=== PATIENT | male | born 1965 ===

== ENCOUNTER 2025-03-07 00:42 | Inpatient (IN) | payer SELFPAY ==
--- NOTE | 2025-03-07 | ECG_ITS ---
Test Reason : chest pain Blood Pressure : */* mmHG Vent. Rate : 62 BPM Atrial Rate : 62 BPM P-R Int : 164 ms QRS Dur : 102 ms QT Int : 382 ms P-R-T Axes : 68 61 8 degrees QTcB Int : 387 ms Normal sinus rhythm Normal ECG No previous ECGs available Referred By: Yao Del Cid Electronically Signed By: OMI HAMPTON MD
--- NOTE | ~2025-03-07 | CT_ITS ---
CLINICAL HISTORY: chest pain CT chest without contrast Comparison: None provided Findings: Heart size is normal. There is no pericardial effusion. Thoracic aorta is normal in diameter. There is no hematoma. There are no enlarged lymph nodes. The lungs are clear. Trachea and central bronchi are widely patent. There is a mild chronic appearing L1 compression fracture. There is no suspicious lytic or sclerotic lesion. Limited images of the upper abdomen demonstrate no acute findings. There is a small left renal cyst. IMPRESSION: No acute abnormality in the chest. This document has been electronically signed by: Car Boyd MD on 03/08/2025 01:16:58
--- NOTE | ~2025-03-07 | XR_ITS ---
CLINICAL HISTORY: chest pain, low grade temp 1 view chest x-ray. Comparison: CT/SR - CT CHEST WO IV CON - 03/08/25 00:14 EDT Findings: The lungs are adequately expanded. No focal consolidation. No effusion or pneumothorax. Cardiac and mediastinal contours are within normal limits. No acute osseous abnormality Impression: No acute process. This document has been electronically signed by: Deandre Bloom MD on 03/09/2025 12:21:11
[2025-03-07 02:07] VITALS: BP 144/88; PULSE 70; RESP 16; TEMP 36.8; O2SAT 99; BMI 24.5
--- NOTE | 2025-03-07 05:01 | PC.ADMIT ---
Inder Fernandez, 59 years old male with PMH of schizophrenia, who presented to the ED at [facility] from [facility] for medical clearance and making a statement to harm others. The pt reported to the police that while we're at it, you might as well call the psych ortega because am not there yet but starting to think about hurting someone . Patient arrived on the unit at 0110 this morning, with admitting diagnosis for adjustment disorder with anxious mood. pt is alert and oriented x4, extremely guarded, unkempt, disheveled but cooperative with questioning. pt. with pressured speech at times, flight of ideas and reports I am just not safe around the [place] Police. Upon arrival, pt. reported I just want to bring this right upfront to you, I don't take any meds, I don't take anything for my head, I am fine. I only take Toradol for hip pain . pt was calm and pleasant, engages easily but unable to complete admission process because he wanted to go to bed, stated its been a long day, I just want to go to bed . pt denied all psych symptoms. pt. denied SI/HI/AVH. pt. contracted for safety, ambulates independently but have right hip pain that bothers him and observed limbing when he walks. He agreed to take shower and use some warm water for the hip discomfort with good effect as per pt. VSS unremarkable. pt has no visible skin issues noticed. pending unit orientation due to tiredness, and pt is being observed on 15mins check. Belongings inventoried/secured. Hopitalist consulted.
--- NOTE | 2025-03-07 07:12 | PHA.MEDREC ---
Pharmacy Consult ? Medication Reconciliation Pharmacy has completed the medication reconciliation. Reviewed med rec done by nursing, no recent claims. Patient told nurse he takes Toradol as needed but it has never been filled.
[2025-03-07 07:39] VITALS: BP 130/66; PULSE 67; RESP 14; TEMP 36.6; O2SAT 97
[2025-03-07 08:43] LABS: Estimated Average Glucose 108 mg/dL; Hemoglobin A1C 134.5467 umol/L; Hemoglobin A1c % 5.4 % (<6.0); Total Hemoglobin (HGBA1C) 3753.1956 umol/L
[2025-03-07 08:49] LABS: Cholesterol 180 mg/dL (<200); HDL Cholesterol 50 mg/dL (>40); LDL Cholesterol Calculated 84 mg/dL (<100); Magnesium 2.2 mg/dL (1.6-2.6); Triglycerides 232 mg/dL (<150)
[2025-03-07 09:07] LABS: Free T4 (Free Thyroxine) 1.09 ng/dL (0.71-1.85); Thyroid Stimulating Hormone 2.71 uIU/mL (0.32-4.0)
[2025-03-07 09:19] LABS: Folate 4.7 ng/mL (> or = 4.0); Vitamin B12 265 pg/mL (200-900)
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
--- NOTE | 2025-03-07 10:50 | P.CONHOSP_ITS ---
History of Present Illness Data of Consult Service Date: 03/07/25 Primary Care Provider: Unknown Physician HPI Reason for consult: Medical H&P Patient is a 59-year-old male admitted from analgesics after he was taken to the ED by [facility] police Department after making a statement that he was going to harm others. He denies any past medical history, denies any past surgical history, his workup was essentially negative. He had a negative CT head and neck, negative CT of his chest, and negative CT of his abdomen and pelvis. BMP and CBC were both within normal limits. He endorses right hip pain that has b een an ongoing issue for him. He denies any interventions, has been told he needs a hip replacement in the past and has taken Toradol on occasion for flare. He walks with a antalgic gait. He does not wish any thing done for his hip pain at this time. Otherwise denies any medical concerns. Review of Systems Review of Systems: Denies any shortness of breath, chest pain, dizziness, lightheadedness, abdominal pain or discomfort, nausea vomiting or diarrhea PMFSH Social History Patient Tobacco Use Status: Current everyday Tobacco user Tobacco use type: Cigarette Currently Displaying Signs/Symptoms of Drug Intoxication Withdrawal: No Advance Directives: No Do you have thoughts of harming others: None Do you have a plan to hurt others: No Plan Recently lost weight without trying: Yes How much weight loss: 14-23 pounds Eating poorly because of decreased appetite: No Nutrition screen score: 4 Nutrition Risks: No Nutritional Risk Meds Allergies Allergy/AdvReac Type Severity Reaction Status Date / Time No Known Allergies Allergy Verified 03/06/25 21:31 Active Medications: Current Medications Acetaminophen (Acetaminophen 325 Mg Tablet) 650 mg PO Q6H PRN PRN Reason: Headache/Pain, Scale 1-10 Al Hydroxide/Mg Hydroxide (Magnesium Hydrox/Alum Hydrox 30 Ml Oral.Susp) 30 ml PO Q6H PRN PRN Reason: Heartburn/Nausea Hydroxyzine HCl (Hydroxyzine Hcl 25 Mg Tablet) 25 mg PO Q6H PRN PRN Reason: mild anxiety Magnesium Hydroxide (Milk Of Magnesia 30 Ml Oral.Susp) 30 ml PO DAILY PRN PRN Reason: Constipation Nicotine Polacrilex (Nicotine Polacrilex 2 Mg Gum) 4 mg BUCCAL Q2H PRN PRN Reason: Nicotine Cravings Trazodone HCl (Trazodone Hcl 50 Mg Tablet) 50 mg PO BEDTIME MRX1 PRN PRN Reason: Insomnia Physical Exam Vital Signs and Narrative: Vital Signs: Last Vital Signs Temp 97.8 F 03/07/25 07:39 Pulse 67 03/07/25 07:39 Resp 14 03/07/25 07:39 BP 130/66 03/07/25 07:39 Pulse Ox 97 03/07/25 07:39 O2 Del Method Room Air 03/07/25 07:39 BMI result Body Mass Index 24.5 Alert and oriented X3, rapid speech Neuro: CN II-X11 intact, no deficits, visual acuity intact EYES: PERRLA, EOM intact ENT: hearing intact, uvula midline, lips moist Cardiac: S1 S2 RRR, no edema in Lower ext Pulmonary: Lungs clear to auscultation, No increased WOB. Abdominal: BS active in all 4 quadrants, no guarding, tenderness, rebounding MSK: Strength 5/5 upper and lower extremities : Deferred Extremities: no edema in lower extremities, Moves all extremities. Psych: mood stable, judgment and insight good Skin: Warm and dry, Intact Results Labs Labs: Laboratory Results - last 24 hr 03/07/25 08:02 Estimat Average Glucose 108 Hemoglobin A1c % 5.4 Magnesium 2.2 Triglycerides 232 H Cholesterol 180 LDL Cholesterol, Calc 84 HDL Cholesterol 50 Vitamin B12 265 Folate 4.7 TSH 2.71 Free T4 1.09 Assessment and Plan (1) Adjustment disorder with anxious mood: Status: Acute Plan Adjustment disorder with anxious mood Treatment per psychiatric team Right hip pain Chronic in nature Imaging did not reveal any abnormalities. Previously has taken Toradol in the past Does not wish any interventions or pain management options Thank you for allowing me to participate in the care of this patient. Signing off at this time. Please reconsult of any acute complaints or issues arise
--- NOTE | 2025-03-07 14:17 | PC.NURSE ---
This narrative writer attempted to complete a med rec and was unable to. Pt provided incorrect pharmacy information. Provider aware.
[2025-03-07 20:00] VITALS: BP 161/80; PULSE 70; RESP 16; TEMP 36.9; O2SAT 98
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
[2025-03-08 00:58] LABS: Troponin-I High Sensitivity 8.4 ng/L (<3.5-35.0)
--- NOTE | 2025-03-08 07:25 | P.PNPSI_ITS ---
Subjective Subjective Date of Service: 03/08/25 Reason For Visit: Adj disorder w/anxious mood Interim History: met with patient. Discussed with Nursing. Chest pain last night. Negative workup. Slept for 4 hours. Appetite okay. Very eager for discharge and minimal insight. With tag writer very clear he wants discharge. Three-day notice expires on 03/12/2025. Reports he is here because of secondhand information and he should have kept his mouth shut in his words after going to the [place] police to file a restraining order against the state of [place] for what patient describes as Bogus trespass orders. He is quite difficult to follow and thought form for example spoke about 3 day notice, then renting a lotfrom his boss who has a large belly, then money to buy things, then winter, then selling rocks for 350 dollars, then people becoming jealous because he was friends with a female neighbor. He is concerned however about a potential court hearing coming up next week and would like social Work to connect with court so he does not get in trouble for not attending Medication Compliance: No Side effects from medications: No Attending Groups: Intermittent Review of Systems Acute medical concerns: No Review of Systems Review of Systems unremarkable Mental Status Exam Mental Status Exam Narrative: Pt is alert and oriented; behavior is hypomanic; patient is not in distress; dressed in casual attire with unkempt hair but adequate hygiene; mood is described as irritable and affect congruent, constricted; eye contact avoidant; Speech is moderately pressured; normal prosody; no psychomotor agitation/retardation present; thought process is circumstantial; Thought content is on being wrong fully admitted; paranoid ideations present; denies any SI/HI. Denies AVH; tag writer did not observe internal preoccupation. Patients insight and judgment impair Diagnostics Vital Signs (24Hr): Vital Signs - 24 hr 03/07/25 07:39 03/07/25 20:00 Temperature 97.8 F 98.4 F Pulse Rate 67 70 Respiratory Rate 14 16 Blood Pressure 130/66 161/80 H Pulse Oximetry 97 98 Oxygen Delivery Method Room Air Room Air BMI result Body Mass Index 24.5 Labs Labs: Laboratory Results - last 48 hr 03/07/25 03/08/25 08:02 00:25 Estimat Average Glucose 108 Hemoglobin A1c % 5.4 Magnesium 2.2 Troponin I High Sens 8.4 Triglycerides 232 H Cholesterol 180 LDL Cholesterol, Calc 84 HDL Cholesterol 50 Vitamin B12 265 Folate 4.7 TSH 2.71 Free T4 1.09 Medications Medications Current Medications Acetaminophen (Acetaminophen 325 Mg Tablet) 650 mg PO Q6H PRN PRN Reason: Headache/Pain, Scale 1-10 Al Hydroxide/Mg Hydroxide (Magnesium Hydrox/Alum Hydrox 30 Ml Oral.Susp) 30 ml PO Q6H PRN PRN Reason: Heartburn/Nausea Hydroxyzine HCl (Hydroxyzine Hcl 25 Mg Tablet) 25 mg PO Q6H PRN PRN Reason: mild anxiety Magnesium Hydroxide (Milk Of Magnesia 30 Ml Oral.Susp) 30 ml PO DAILY PRN PRN Reason: Constipation Nicotine Polacrilex (Nicotine Polacrilex 2 Mg Gum) 4 mg BUCCAL Q2H PRN PRN Reason: Nicotine Cravings Trazodone HCl (Trazodone Hcl 50 Mg Tablet) 50 mg PO BEDTIME MRX1 PRN PRN Reason: Insomnia Allergies Allergies Allergy/AdvReac Type Severity Reaction Status Date / Time No Known Allergies Allergy Verified 03/06/25 21:31 Assessment & Plan Assessment & Plan (1) Bipolar disorder: Status: Acute Code(s): F31.9 - Bipolar disorder, unspecified Plan Formulation/clinical reasoning: Patient guarded, irritable and limited historian Presents with hypomanic symptoms and paranoid delusions. At this time Will provisionally diagnose with bipolar disorder since collateral seems to report that patient's symptoms are episodic, having episodes every 6-7 years (schizoaffective disorder versus schizophrenia rule out). UDS negative and labs, head CT unremarkable. Patient has no insight. Will start him on Zyprexa 5 mg b.i.d. to try and cover for basil and psychotic symptoms. Patient is demanding discharge. Patient signed a CV, then he signed a 3 day notice and then retracted the 3 day notice; tag writer explained that if he wants discharge he should resigned the 3 day notice however patient refuses. Offset Proof Press Operator side 1 on his behalf given this is his intention; discussed with staff who provided patient with information to request emergency hearing. -lateral needed PLAN: Three day notice (signed by tag writer on his behalf) Q 15 minute checks Will start Zyprexa 5 mg b.i.d. 03/08/2025: No changes to current treatment plan. He is concerned however about a potential court hearing coming up next week and would like social Work to connect with court so he does not get in trouble for not attending Reason for continued inpatient stay Substantial Risk for: inability to function and rapid decompensation Time Spent With Patient Time: Total time managing care of this patient today ____ minutes.
[2025-03-08 20:00] VITALS: BP 163/96; PULSE 83; RESP 16; TEMP 36.9; O2SAT 98
--- NOTE | 2025-03-09 | ECG_ITS ---
Test Reason : chest pain Blood Pressure : */* mmHG Vent. Rate : 63 BPM Atrial Rate : 63 BPM P-R Int : 168 ms QRS Dur : 96 ms QT Int : 380 ms P-R-T Axes : 60 34 17 degrees QTcB Int : 388 ms Normal sinus rhythm with sinus arrhythmia Normal ECG When compared with ECG of 07-Mar-2025 23:48, No significant change was found Referred By: Lilia Montero Electronically Signed By: Lexa Guillen
[2025-03-09 08:00] VITALS: BP 185/97; PULSE 71; RESP 14; TEMP 37.3; O2SAT 97
[2025-03-09 08:57] VITALS: BP 166/95; PULSE 76; TEMP 37.3
--- NOTE | 2025-03-09 11:09 | HO.PSYCHPN ---
Subjective Subjective Date of Service: 03/09/25 Reason For Visit: Adj disorder w/anxious mood Subjective Notes: 3 Day (exp 03/12/25) Medical Problems Affecting Mental Status: No Interim History: Has been refusing olanzapine. No insight into symptoms and feels he should be on a medical floor, not a psych floor. Expressing paranoia. Wanted STD test, then tox scree(which he had at another facility.) Complaining of chest pain and sweating earlier today but stated that it moved to his kidneys when he sat up. eating and sleeping OK. Medication Compliance: No Side effects from medications: No Attending Groups: No Review of Systems Acute medical concerns: Yes As above, chest pain and sweating Mental Status Exam Mental Status Exam Patient Appearance: Unkempt Patient Orientation: Person, Place, Time and Situation Level of Consciousness: Alert Patient Behavior: Suspicious and Isolative Mood Description: Calm Affect Description: Suspicious Patient Cognition Impaired: No Speech Pattern: Clear Memory Description: Intact Hallucinations: None Delusions: Paranoid Ideation Thought Process: Illogical Thought Content: positive for Perseveration and positive for Disorganized Judgement: Fair Diagnostics Vital Signs (24Hr): Vital Signs - 24 hr 03/08/25 20:00 03/09/25 08:00 03/09/25 08:57 Temperature 98.4 F 99.1 F 99.1 F Pulse Rate 83 71 76 Respiratory Rate 16 14 Blood Pressure 163/96 H 185/97 H 166/95 H Pulse Oximetry 98 97 Oxygen Delivery Method Room Air Room Air BMI result Body Mass Index 24.5 Labs Labs: Laboratory Results - last 48 hr 03/08/25 00:25 Troponin I High Sens 8.4 Medications Medications Current Medications Acetaminophen (Acetaminophen 325 Mg Tablet) 650 mg PO Q6H PRN PRN Reason: Headache/Pain, Scale 1-10 Al Hydroxide/Mg Hydroxide (Magnesium Hydrox/Alum Hydrox 30 Ml Oral.Susp) 30 ml PO Q6H PRN PRN Reason: Heartburn/Nausea Hydroxyzine HCl (Hydroxyzine Hcl 25 Mg Tablet) 25 mg PO Q6H PRN PRN Reason: mild anxiety Magnesium Hydroxide (Milk Of Magnesia 30 Ml Oral.Susp) 30 ml PO DAILY PRN PRN Reason: Constipation Nicotine Polacrilex (Nicotine Polacrilex 2 Mg Gum) 4 mg BUCCAL Q2H PRN PRN Reason: Nicotine Cravings Olanzapine (Olanzapine 5 Mg Tablet) 5 mg PO BID [facility] Last Admin: 03/09/25 08:55 Dose: Not Given Trazodone HCl (Trazodone Hcl 50 Mg Tablet) 50 mg PO BEDTIME MRX1 PRN PRN Reason: Insomnia Allergies Allergies Allergy/AdvReac Type Severity Reaction Status Date / Time No Known Allergies Allergy Verified 03/06/25 21:31 Assessment & Plan Assessment & Plan (1) Bipolar disorder: Status: Acute Code(s): F31.9 - Bipolar disorder, unspecified Plan Formulation/clinical reasoning: Patient guarded, irritable and limited historian Presents with hypomanic symptoms and paranoid delusions. At this time Will provisionally diagnose with bipolar disorder since collateral seems to report that patient's symptoms are episodic, having episodes every 6-7 years (schizoaffective disorder versus schizophrenia rule out). UDS negative and labs, head CT unremarkable. Patient has no insight. Will start him on Zyprexa 5 mg b.i.d. to try and cover for basil and psychotic symptoms. Patient is demanding discharge. Patient signed a CV, then he signed a 3 day notice and then retracted the 3 day notice; ghost writer explained that if he wants discharge he should resigned the 3 day notice however patient refuses. Drop Hammer Pile Driver Operator side 1 on his behalf given this is his intention; discussed with staff who provided patient with information to request emergency hearing. -lateral needed PLAN: Three day notice (signed by ghost writer on his behalf) Q 15 minute checks Will start Zyprexa 5 mg b.i.d. 03/08/2025: No changes to current treatment plan. He is concerned however about a potential court hearing coming up next week and would like social Work to connect with court so he does not get in trouble for not attending 03/09/25: CXR, repeat troponin and CBC ordered. Pain is probably musculoskeletal but want to rule out other causes Reason for continued inpatient stay Substantial Risk for: med/psych decompensation Time Spent With Patient Time: Total time managing care of this patient today ____ minutes.
[2025-03-09 11:24] LABS: MANUAL DIFF FLAG NO
[2025-03-09 11:27] LABS: Basophils Absolute Auto 0.1 X10*3/uL (0.0-0.2); Basophils Percent Auto 0.6 % (0-2); Eosinophils Absolute Auto 0.2 X10*3/uL (0.0-0.4); Eosinophils Percent Auto 3.1 % (0-4); Hematocrit 43.2 % (42.0-52.0); Hemoglobin 15.2 g/dl (14.0-18.0); Imm Gran Abs Auto 0.04 X10*3/uL (0.00-0.03); Imm Gran Pct Auto 0.5 % (0.0-0.4); Lymphocytes Absolute Auto 1.8 X10*3/uL (1.2-4.9); Lymphocytes Percent Auto 22.6 % (20-40); Mean Corpuscular HGB Conc 35.2 g/dl (31.0-36.0); Mean Platelet Volume 8.9 fL (9.4-12.4); Monocytes Absolute Auto 0.6 X10*3/uL (0.1-1.2); Monocytes Percent Auto 7.1 % (2-11); Neutrophils Absolute Auto 5.2 x10*3/uL (2.0-8.3); Neutrophils Percent Auto 66.1 % (45-73); Platelet Count 236 X10*3/uL (160-400); Red Blood Count 4.91 X10*6/uL (4.60-5.80); White Blood Count 7.8 X10*3/uL (4.8-10.8)
[2025-03-09 11:42] LABS: Anion Gap 13 (12-20); Blood Urea Nitrogen 22 mg/dL (9-16); Calcium 8.8 mg/dL (8.4-10.2); Carbon Dioxide 23 mmol/L (22-29); Chloride 108 mmol/L (96-108); Creatinine Clr Calc Pharmacy 84.3; Estimated Glomerular Filt Rate > 60; Glucose Random 111 mg/dL (60-115); Potassium 4.2 mmol/L (3.3-5.1); Sodium 140 mmol/L (135-145)
[2025-03-09 16:51] LABS: CT PCR NOT DETECTED (Not Detect.); NG PCR NOT DETECTED (Not Detect.)
[2025-03-09 22:17] VITALS: BP 160/94; PULSE 80; RESP 18; TEMP 36.7; O2SAT 98
--- NOTE | 2025-03-10 09:15 | PC.NURSE ---
Patient politely declined the [employer] form this morning when offered. Stated I'm going to continue smoking when I get out of here, I don't need any information on stopping .
[2025-03-10 09:29] VITALS: BP 160/74; PULSE 65; RESP 17; TEMP 37.2; O2SAT 97
--- NOTE | 2025-03-10 16:24 | P.PNPSI_ITS ---
Subjective Subjective Date of Service: 03/10/25 Reason For Visit: Adj disorder w/anxious mood Interim History: tangential, paranoid delusions, disorganized. refusing medications, wants discharge. per staff, 3-day up 03/12. denies Sx. refusing meds. suspicious of staff and meds. slept about 6 hours. Mental Status Exam Mental Status Exam Narrative: Pt is alert and oriented; behavior is hypomanic; patient is not in distress; dressed in casual attire with unkempt hair but adequate hygiene; mood is described as fine and affect congruent, constricted; eye contact WNL; Speech is moderately pressured; normal prosody; no psychomotor agitation/retardation present; thought process is tangential; Thought content is on being wrong fully admitted; paranoid delusions present; denies any SI/HI. Denies AVH; personal lines underwriter did not observe internal preoccupation. Patients insight and judgment impair Diagnostics Vital Signs (24Hr): Vital Signs - 24 hr 03/09/25 22:17 03/10/25 09:29 Temperature 98.1 F 98.9 F Pulse Rate 80 65 Respiratory Rate 18 17 Blood Pressure 160/94 H 160/74 H Pulse Oximetry 98 97 Oxygen Delivery Method Room Air Room Air BMI result Body Mass Index 24.5 Labs 03/09/25 11:20 03/09/25 11:20 Labs: Laboratory Results - last 48 hr 03/09/25 03/09/25 11:20 15:05 WBC 7.8 RBC 4.91 Hgb 15.2 Hct 43.2 MCV 88.0 MCH 31.0 MCHC 35.2 RDW 13.0 Plt Count 236 MPV 8.9 L Immature Gran % (Auto) 0.5 H Neut % (Auto) 66.1 Lymph % (Auto) 22.6 [place] % (Auto) 7.1 Eos % (Auto) 3.1 Baso % (Auto) 0.6 Lymph # (Auto) 1.8 [place] # (Auto) 0.6 Eos # (Auto) 0.2 Baso # (Auto) 0.1 Abs Immat Gran (auto) 0.04 H Absolute Neuts (auto) 5.2 Absolute Nucleated RBC 0.000 Nucleated RBC % (auto) 0.0 Sodium 140 Potassium 4.2 Chloride 108 Carbon Dioxide 23 Anion Gap 13 BUN 22 H Creatinine 0.84 Estim Creat Clear Calc 84.3 Estimated GFR > 60 Random Glucose 111 Calcium 8.8 Troponin I High Sens 5.0 Chlam trachomat DNA PCR NOT DETECTED N.gonorrhoeae DNA (PCR) NOT DETECTED Medications Medications Current Medications Acetaminophen (Acetaminophen 325 Mg Tablet) 650 mg PO Q6H PRN PRN Reason: Headache/Pain, Scale 1-10 Al Hydroxide/Mg Hydroxide (Magnesium Hydrox/Alum Hydrox 30 Ml Oral.Susp) 30 ml PO Q6H PRN PRN Reason: Heartburn/Nausea Hydroxyzine HCl (Hydroxyzine Hcl 25 Mg Tablet) 25 mg PO Q6H PRN PRN Reason: mild anxiety Magnesium Hydroxide (Milk Of Magnesia 30 Ml Oral.Susp) 30 ml PO DAILY PRN PRN Reason: Constipation Nicotine Polacrilex (Nicotine Polacrilex 2 Mg Gum) 4 mg BUCCAL Q2H PRN PRN Reason: Nicotine Cravings Olanzapine (Olanzapine 5 Mg Tablet) 5 mg PO BID [facility] Last Admin: 03/10/25 09:18 Dose: Not Given Trazodone HCl (Trazodone Hcl 50 Mg Tablet) 50 mg PO BEDTIME MRX1 PRN PRN Reason: Insomnia Allergies Allergies Allergy/AdvReac Type Severity Reaction Status Date / Time No Known Allergies Allergy Verified 03/06/25 21:31 Assessment & Plan Assessment & Plan (1) Bipolar disorder: Status: Acute Code(s): F31.9 - Bipolar disorder, unspecified Plan Formulation/clinical reasoning: Patient guarded, irritable and limited historian Presents with hypomanic symptoms and paranoid delusions. At this time Will provisionally diagnose with bipolar disorder since collateral seems to report that patient's symptoms are episodic, having episodes every 6-7 years (schizoaffective disorder versus schizophrenia rule out). UDS negative and labs, head CT unremarkable. Patient has no insight. Will start him on Zyprexa 5 mg b.i.d. to try and cover for basil and psychotic symptoms. Patient is demanding discharge. Patient signed a CV, then he signed a 3 day notice and then retracted the 3 day notice; personal lines underwriter explained that if he wants discharge he should resigned the 3 day notice however patient refuses. Programming Equipment Operator side 1 on his behalf given this is his intention; discussed with staff who provided patient with information to request emergency hearing. -lateral needed PLAN: Three day notice (signed by personal lines underwriter on his behalf) Q 15 minute checks Will start Zyprexa 5 mg b.i.d. 03/08/2025: No changes to current treatment plan. He is concerned however about a potential court hearing coming up next week and would like social Work to connect with court so he does not get in trouble for not attending 03/09/25: CXR, repeat troponin and CBC ordered. Pain is probably musculoskeletal but want to rule out other causes. 03/10: no CP today, appears to have been musculoskeletal. refusing meds, tangential, paranoid delusions. not apparently dangerous. 3-day notice is up 03/12. continue to offer medications. Reason for continued inpatient stay Substantial Risk for: inability to function and rapid decompensation Time Spent With Patient Time: Total time managing care of this patient today __25__ minutes.
[2025-03-10 20:00] VITALS: BP 139/78; PULSE 83; RESP 16; TEMP 36.8; O2SAT 97
[2025-03-10] MEDS: Acetaminophen 325 MG TABLET 650 MG PO (20:30)
[2025-03-11 07:52] VITALS: BP 173/91; PULSE 87; RESP 16; TEMP 36.5; O2SAT 97
[2025-03-11] MEDS: Acetaminophen 325 MG TABLET 650 MG PO ×2 (09:07→20:50)
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
[2025-03-11] MEDS: Aspirin Enteric Coated 81 MG TABLET.DR PO (12:41)
[2025-03-11 20:00] VITALS: BP 184/92; PULSE 80; RESP 16; TEMP 37.2; O2SAT 98
[2025-03-12] MEDS: Acetaminophen 325 MG TABLET 650 MG PO (05:53)
[2025-03-12 08:00] VITALS: BP 146/70; PULSE 61; RESP 14; TEMP 36.6; O2SAT 98
[2025-03-12] MEDS: Aspirin Enteric Coated 81 MG TABLET.DR PO (08:18)
== END 2025-03-12 10:03 | disposition home or self-care (01) | DRG 885 ==
PROVIDERS: Clinical Nurse Specialist Psychiatric/Mental Health, Adult; Psychiatry & Neurology Psychiatry; Student in an Organized Health Care Education/Training Program; Admitting Provider Psychiatry & Neurology Psychiatry; Visit Provider Psychiatry & Neurology Psychiatry
DX: F31.10 Bipolar disorder, current episode manic without psychotic features, unspecified (principal); F43.22 Adjustment disorder with anxiety; M25.551 Pain in right hip; G89.29 Other chronic pain; F17.210 Nicotine dependence, cigarettes, uncomplicated; Z71.6 Tobacco abuse counseling
CPT/HCPCS: 36415; 71045; 71250; 80048; 80061; 82607; 82746; 83036; 83735; 84439; 84443; 84484; 85025; 87491; 87591; 93005

== ENCOUNTER 2025-03-07 00:42 | Outpatient (BNV) | payer SELFPAY | END 2025-03-07 23:48 | PROVIDERS: Admitting Provider Psychiatry & Neurology Psychiatry; Visit Provider Internal Medicine Cardiovascular Disease | DX: R07.9 Chest pain, unspecified (principal) | CPT/HCPCS: 93010 ==

== ENCOUNTER 2025-03-07 00:42 | Outpatient (BNV) | payer SELFPAY | END 2025-03-09 11:15 | PROVIDERS: Admitting Provider Psychiatry & Neurology Psychiatry; Visit Provider Radiology Vascular & Interventional Radiology | DX: R07.9 Chest pain, unspecified (principal); R50.9 Fever, unspecified | CPT/HCPCS: 71045 ==

== ENCOUNTER 2025-03-07 00:42 | Outpatient (BNV) | payer SELFPAY | END 2025-03-08 | PROVIDERS: Admitting Provider Psychiatry & Neurology Psychiatry; Visit Provider Radiology Diagnostic Radiology | DX: R07.9 Chest pain, unspecified (principal) | CPT/HCPCS: 71250 ==

== ENCOUNTER 2025-03-07 00:42 | Outpatient (BNV) | payer SELFPAY | END 2025-03-09 11:09 | PROVIDERS: Admitting Provider Psychiatry & Neurology Psychiatry; Visit Provider Internal Medicine Cardiovascular Disease | DX: R07.9 Chest pain, unspecified (principal) | CPT/HCPCS: 93010 ==

== ENCOUNTER → 2025-03-07 00:42 | Outpatient (BNV) | payer SELFPAY | PROVIDERS: Admitting Provider Psychiatry & Neurology Psychiatry; Visit Provider Psychiatry & Neurology Psychiatry | DX: F31.9 Bipolar disorder, unspecified (principal) | CPT/HCPCS: 90792; 99231; 99232; 99239 ==

== ENCOUNTER → 2025-03-07 00:42 | Outpatient (BNV) | payer SELFPAY | PROVIDERS: Admitting Provider Psychiatry & Neurology Psychiatry; Visit Provider Nurse Practitioner Family | DX: Z00.8 Encounter for other general examination (principal) | CPT/HCPCS: 99499 ==